=== PATIENT | male | born 1985 | race African-American/Black ===

== ENCOUNTER 2017-05-30 21:04 | Emergency (ER) ==
[2017-05-30 21:20] VITALS: BP 130/82; TEMP 98.4; BMI 30.5
[2017-05-30 21:36] LABS: BASOPHILS # (AUTO) 0.1 K/uL (0-0.2); BASOPHILS % (AUTO) 0.7 % (0.0-3.0); EOSINOPHILS # (AUTO) 0.2 K/ul (0.0-0.7); EOSINOPHILS % (AUTO) 1.6 % (0.0-7.0); HEMATOCRIT 45.8 % (42.0-52.0); HEMOGLOBIN 15.4 g/dl (14.0-18.0); IMMATURE GRANULOCYTE % (AUTO) 0.3 % (0.0-5.0); LYMPHOCYTES % (AUTO) 18.7 (10.0-50.0); MEAN CORPUSCULAR HEMOGLOBIN 26.9 pg (27.0-31.0); MEAN CORPUSCULAR HGB CONC 33.6 (31.8-35.4); MEAN CORPUSCULAR VOLUME 79.9 fl (80.0-94.0); MONOCYTES # (AUTO) 1.2 K/uL (0.4-2.0); MONOCYTES % (AUTO) 10.8 (0-10); NEUTROPHILS # (AUTO) 7.2 K/ul (2.0-6.9); NEUTROPHILS % (AUTO) 67.9; PLATELET COUNT 318 10^3/uL (140-440); RED BLOOD COUNT 5.73 10^6/ul (4.70-6.10); WHITE BLOOD COUNT 10.63 K/ul (4.2-10.2)
[2017-05-30 21:39] LABS: ADD URINE MICROSCOPIC NO; BILIRUBIN,URINE Negative (NEGATIVE); KETONES,URINE Trace (NEGATIVE); LEUKOCYTE ESTERASE ,URINE Negative (NEGATIVE); NITRITE,URINE Negative (NEGATIVE); PH,URINE 6.5 (5-9); PROTEIN,URINE Negative (NEGATIVE); URINE, BLOOD Negative (NEGATIVE)
--- NOTE | 2017-05-30 21:41 | CT ---
EXAM: CT scan of the head without contrast HISTORY: Headaches TECHNIQUE: Imaging of the head was performed without contrast. 5 mm thin axial images and coronal a nd sagittal images were provided for interpretation. FINDINGS: The almanza-white interface appears normal. The lateral ventricles and cortical sulci are no rmal. The basal cisterns are patent. There is no acute hemorrhage or mass effect. There are no ext raaxial collections. The paranasal sinuses and mastoid air cells are clear. The calvarium and extra cranial soft tissues are normal. IMPRESSION: No acute intracranial abnormalities are seen.
[2017-05-30 21:48] LABS: COCAIN SCREEN,URINE NEGATIVE (NEGATIVE)
[2017-05-30 22:15] LABS: ALBUMIN 4.4 g/dL (3.4-5.0); ALBUMIN/GLOBULIN RATIO 1.02; ANION GAP 15.9; BILIRUBIN,TOTAL 0.57 mg/dL (0.00-1.20); BUN/CREATININE RATIO 12.4; CALCIUM 10.4 mg/dL (8.2-10.2); CREATININE 1.37 mg/dL (0.60-1.10); POTASSIUM 3.9 mmol/L (3.5-5.1); TOTAL PROTEIN 8.7 g/dL (6.4-8.2)
--- NOTE | 2017-05-31 00:44 | ED.PDOC ---
General ED Provider: Dr. JOE CLEMENTE-ER Chief Complaint: Psychiatric Complaint Stated Complaint: im paranoid Time Seen by Physician: 21:10 Mode of Arrival: Walk-In Information Source: Patient Exam Limitations: No limitations Nursing and Triage Documentation Reviewed and Agree: Yes Psychological Complaint Exam - Psychiatric Complaint/Exam Patient Complains Of: Present: Other Onset/Duration: 2-3 weeks Symptoms Are: Still present Timing: Intermittent Episodes Lasting: Days Initial Severity: Mild Current Severity: Moderate Aggravating: Reports: Recent stress Associated Signs And Symptoms: Reports: Paranoid behavior, Sleep disturbance Related History: Denies: Suicidal thoughts, Suicidal plan, Suicidal gestures, Homicidal thoughts, Homicidal plan, Homicidal gestures, Prior attempts, Recent stressors, Drug ingestion Completed Suicide Risk Factors: Male Patient In Custody Of Police: No Social Withdrawal Present: Yes Social Isolation Present: No Prior Suicide Attempt: No Injury From Prior Suicide Attempt: No Related Surgical History: Reports: None Patient Uncooperative For Exam: No Mood: Present: Guarded, Paranoid, Anxious, Hearing voices Appearance: Present: Clean Memory: Intact Judgement: Normal Danger To Others: No Patient Medically Stable For: Psych evaluation, Referral, Transfer Differential Diagnoses: Bipolar Disorder, Acute Psychosis, Schizophrenia Review of Systems - Review Of Systems Constitutional: Reports: No symptoms Eyes: Reports: No symptoms Ears, Nose, Mouth, Throat: Reports: No symptoms Respiratory: Reports: No symptoms Cardiac: Reports: No symptoms GI: Reports: No symptoms : Reports: No symptoms Musculoskeletal: Reports: No symptoms Skin: Reports: No symptoms Neurological: Reports: No symptoms Endocrine: Reports: No symptoms Hematologic/Lymphatic: Reports: No symptoms All Other Systems: Reviewed and Negative Past Medical History - Past Medical History Previously Healthy: Yes Endocrine: Reports: Unknown Cardiovascular: Reports: Unknown Respiratory: Reports: Unknown Hematological: Reports: Unknown Gastrointestinal: Reports: Unknown Genitourinary: Reports: Unknown Neuro/Psych: Reports: Unknown Musculoskeletal: Reports: Unknown Cancer: Reports: Unknown - Surgical History General Surgical History: Reports: Unknown - Family History Family History: Reports: Unknown - Social History Smoking Status: Current every day smoker, Light tobacco smoker Hx Substance Use: No Alcohol Screening: None - Immunizations Tetanus Shot up to Date: Yes Physical Exam - Physical Exam Appearance: Well-appearing, No pain distress, Well-nourished Eyes: AILEEN, EOMI, Conjunctiva clear ENT: Ears normal, Nose normal, Oropharynx normal Neck: Supple Respiratory: Airway patent, Breath sounds clear, Breath sounds equal, Respirations nonlabored Cardiovascular: RRR, Pulses normal, No rub, No murmur GI/: Soft, Nontender, No masses, Bowel sounds normal, No Organomegaly Musculoskeletal: Normal strength, ROM intact, No edema, No calf tenderness Skin: Warm Neurological: Sensation intact, Motor intact, Reflexes intact, Cranial nerves intact, Alert, Oriented Psychiatric: Affect appropriate, Mood appropriate Interpretation - Radiology Interpretation Radiology Interpretation By: Radiologist Radiology Results: Negative Exam Interpreted: CT Scan Critical Care Note - Critical Care Note Total Time (mins): 0 Course - Course Hematology/Chemistry: 05/30/17 21:34 05/30/17 21:34 Orders, Labs, Meds: Lab Review 05/30/17 05/30/17 05/30/17 21:34 21:34 21:35 WBC 10.63 H RBC 5.73 Hgb 15.4 Hct 45.8 MCV 79.9 L MCH 26.9 L MCHC 33.6 RDW Coeff of Timmy 13.0 Plt Count 318 Immature Gran % (Auto) 0.3 Neut % (Auto) 67.9 Lymph % (Auto) 18.7 [place] % (Auto) 10.8 H Eos % (Auto) 1.6 Baso % (Auto) 0.7 Immature Gran # (Auto) 0.0 Neut # 7.2 H Lymph # 2.0 [place] # 1.2 Eos # 0.2 Baso # 0.1 Sodium 140 Potassium 3.9 Chloride 101 Carbon Dioxide 27 Anion Gap 15.9 BUN 17 Creatinine 1.37 H Estimated GFR (MDRD) 73.00 BUN/Creatinine Ratio 12.40 Glucose 75 Calcium 10.4 H Total Bilirubin 0.57 AST 22 ALT 10 L Alkaline Phosphatase 67 Total Protein 8.7 H Albumin 4.4 Globulin 4.3 Albumin/Globulin Ratio 1.02 TSH 0.849 Urine Color Urine Clarity Urine pH Ur Specific [place] Urine Protein Urine Glucose (UA) Urine Ketones Urine Blood Urine Nitrite Urine Bilirubin Urine Urobilinogen Ur Leukocyte Esterase Urine Opiates Screen Negative Ur Oxycodone Screen Negative Urine Methadone Screen Negative Ur Propoxyphene Screen Negative Ur Barbiturates Screen Negative U Tricyclic Antidepress Negative Ur Phencyclidine Scrn Negative Ur Amphetamine Screen Negative U Methamphetamines Scrn Negative U Benzodiazepines Scrn Negative Urine Cocaine Screen Negative U Cannabinoids Screen Positive Plasma/Serum Alcohol 05/30/17 05/31/17 21:35 01:35 WBC RBC Hgb Hct MCV MCH MCHC RDW Coeff of Timmy Plt Count Immature Gran % (Auto) Neut % (Auto) Lymph % (Auto) [place] % (Auto) Eos % (Auto) Baso % (Auto) Immature Gran # (Auto) Neut # Lymph # [place] # Eos # Baso # Sodium Potassium Chloride Carbon Dioxide Anion Gap BUN Creatinine Estimated GFR (MDRD) BUN/Creatinine Ratio Glucose Calcium Total Bilirubin AST ALT Alkaline Phosphatase Total Protein Albumin Globulin Albumin/Globulin Ratio TSH Urine Color Yellow Urine Clarity Clear Urine pH 6.5 Ur Specific [place] 1.020 Urine Protein Negative Urine Glucose (UA) Negative Urine Ketones Trace Urine Blood Negative Urine Nitrite Negative Urine Bilirubin Negative Urine Urobilinogen 1.0 Ur Leukocyte Esterase Negative Urine Opiates Screen Ur Oxycodone Screen Urine Methadone Screen Ur Propoxyphene Screen Ur Barbiturates Screen U Tricyclic Antidepress Ur Phencyclidine Scrn Ur Amphetamine Screen U Methamphetamines Scrn U Benzodiazepines Scrn Urine Cocaine Screen U Cannabinoids Screen Plasma/Serum Alcohol < 10.0 Orders Category Date Time Status BLOOD ALCOHOL Stat LAB 05/31/17 01:35 Completed CBC W/ AUTO DIFF Stat LAB 05/30/17 21:34 Completed COMPREHENSIVE METABOLIC PANEL Stat LAB 05/30/17 21:34 Completed THYROID STIMULATING HORMONE Stat LAB 05/30/17 21:34 Completed URINALYSIS C & S IF INDICATED Stat LAB 05/30/17 21:35 Completed URINE DRUG SCREEN (RAPID FOR ED) [DRUG SCREEN, URINE, LAB 05/30/17 21:35 Completed RAPID] Stat CT HEAD W/O CONTRAST Stat RADS 05/30/17 21:23 Completed Vital Signs: Temp Pulse Resp BP Pulse Ox 05/30/17 21:05 98.4 F 94 H 18 130/82 98 Departure - Departure Time of Disposition: 00:44 Disposition: HOME SELF-CARE Discharge Problem: Psychosis Instructions: Psychotic Disorder (ED) Condition: Good Pt referred to PMD for follow-up: Yes Additional Instructions: go to the mental health facility upon discharge as instructed Allergies/Adverse Reactions: Allergies Penicillins Adverse Reaction (Verified 05/30/17 21:54) Home Medications: Ambulatory Orders 1 [No Reported Medications] 05/30/17 Disposition Discussed With: Patient Discharge Problem: Psychosis Qualifiers: Psychosis type: unspecified psychosis type Qualified Code(s): F29 - Unspecified psychosis not due to a substance or known physiological condition
== END 2017-05-31 08:25 | disposition home or self-care (01) ==
LOC: ED 21:04
DX: F29 Unspecified psychosis not due to a substance or known physiological condition (principal); F17.210 Nicotine dependence, cigarettes, uncomplicated
CPT/HCPCS: 36415; 80053; 80306; 80307; 81001; 84443; 85025; 99283; 99284

== ENCOUNTER 2017-10-01 17:33 | Emergency (ER) ==
[2017-10-01 17:36] VITALS: BMI 27.3
--- NOTE | 2017-10-01 21:13 | ED.PDOC ---
General ED Provider: Dr. ESTELLA CHERRY Chief Complaint: Psychiatric Complaint Stated Complaint: patient is a 32 year old male with a psychiatirc history who is supposed to be on zyprexa but has not taken for few days. State it makes him feel funny. He states that he feels suicidal but does not have a plan. Time Seen by Physician: 18:00 Mode of Arrival: Walk-In Information Source: Patient Exam Limitations: No limitations Nursing and Triage Documentation Reviewed and Agree: Yes Reviewed sepsis parameters & appropriate labs ordered?: Yes System Inflammatory Response Syndrome: Not Applicable Sepsis Protocol: For patient's 13 years and over: Temp is 96.8 and below OR 101 and greater Pulse >90 BPM Resp >20/minute Acutely Altered Mental Status Are patient's symptoms suggestive of a new infection, such as: -Pneumonia -Skin, Soft Tissue -Endocarditis -UTI -Bone, Joint Infection -Implantable Device -Acute Abdominal Infection -Wound Infection -Meningitis -Blood Stream Catheter Infection -Unknown System Inflammatory Response Syndrome: Not Applicable Psychological Complaint Exam - Psychiatric Complaint/Exam Patient Complains Of: Present: Depression, Suicidal thoughts Onset/Duration: 1 day Symptoms Are: Still present Timing: Constant Initial Severity: Moderate Current Severity: Severe Character: Present: Depressed, Anxious Aggravating: Reports: Medication noncompliance Associated Signs And Symptoms: Reports: Paranoid behavior Related History: Reports: Suicidal thoughts Completed Suicide Risk Factors: None Patient In Custody Of Police: No Social Withdrawal Present: No Social Isolation Present: No Prior Suicide Attempt: No Injury From Prior Suicide Attempt: No Related Surgical History: Reports: None Patient Uncooperative For Exam: No Mood: Present: Depressed, Paranoid, Anxious Appearance: Present: Clean Thought Process: Present: Illogical Insight: Present: Poor, Limited Memory: Intact Judgement: Impaired Patient Medically Stable For: Psych evaluation Differential Diagnoses: Anxiety, Depression, Suicidal Ideation Review of Systems - Review Of Systems Constitutional: Reports: No symptoms Eyes: Reports: No symptoms Ears, Nose, Mouth, Throat: Reports: No symptoms Respiratory: Reports: No symptoms Cardiac: Reports: No symptoms GI: Reports: No symptoms : Reports: No symptoms Musculoskeletal: Reports: No symptoms Skin: Reports: No symptoms Neurological: Reports: Anxiety, Depressed Endocrine: Reports: No symptoms Hematologic/Lymphatic: Reports: No symptoms All Other Systems: Reviewed and Negative Past Medical History - Past Medical History Previously Healthy: Yes Endocrine: Reports: None Cardiovascular: Reports: None Respiratory: Reports: None Hematological: Reports: None Gastrointestinal: Reports: None Genitourinary: Reports: None Neuro/Psych: Reports: Anxiety, Depression Musculoskeletal: Reports: None Cancer: Reports: None - Surgical History General Surgical History: Reports: None - Family History Family History: Reports: None - Social History Smoking Status: Current every day smoker, Light tobacco smoker Hx Substance Use: No Alcohol Screening: None Physical Exam - Physical Exam Appearance: Ill-appearing Ill-appearing: Mild Eyes: AILEEN, EOMI, Conjunctiva clear ENT: Ears normal, Nose normal, Oropharynx normal Neck: Supple Respiratory: Airway patent, Breath sounds clear, Breath sounds equal, Respirations nonlabored Cardiovascular: RRR, Pulses normal, No rub, No murmur GI/: Soft, Nontender, No masses, Bowel sounds normal, No Organomegaly Musculoskeletal: Normal strength, ROM intact, No edema, No calf tenderness Skin: Warm, Dry, Normal color Neurological: Sensation intact, Motor intact, Reflexes intact, Cranial nerves intact, Alert, Oriented Psychiatric: Anxious, Depressed Interpretation - EKG Interpretation Time of EKG #1: 21:33 Rate: Normal Rhythm: Sinus Ectopy: None [place]: [place] Interpretation: normal sinus, Right ventricular Hypertophy Physician Notification - Case Discussed Physician Notified: Dr. Reddy Time of Notification: 03:18 (Acepted for transfer ) Critical Care Note - Critical Care Note Total Time (mins): 0 Course - Course Hematology/Chemistry: 10/01/17 18:20 18 18:20 Orders, Labs, Meds: Lab Review 10/01/17 10/01/17 10/01/17 18:20 18:20 21:00 WBC 12.23 H RBC 5.26 Hgb 14.0 Hct 42.3 MCV 80.4 MCH 26.6 L MCHC 33.1 RDW Coeff of Timmy 13.3 Plt Count 305 Immature Gran % (Auto) 0.3 Neut % (Auto) 58.9 Lymph % (Auto) 21.8 [place] % (Auto) 16.7 H Eos % (Auto) 1.7 Baso % (Auto) 0.6 Immature Gran # (Auto) 0.0 Neut # 7.2 H Lymph # 2.7 [place] # 2.0 Eos # 0.2 Baso # 0.1 Sodium 138 Potassium 3.8 Chloride 102 Carbon Dioxide 22 Anion Gap 17.8 BUN 18 Creatinine 1.33 H Estimated GFR (MDRD) 76.00 BUN/Creatinine Ratio 13.53 Glucose 81 Calcium 9.9 Total Bilirubin 0.8 AST 51 H ALT 19 Alkaline Phosphatase 72 Total Protein 8.6 H Albumin 4.3 Globulin 4.3 Albumin/Globulin Ratio 1.00 Urine Color Urine Clarity Urine pH Ur Specific [place] Urine Protein Urine Glucose (UA) Urine Ketones Urine Blood Urine Nitrite Urine Bilirubin Urine Urobilinogen Ur Leukocyte Esterase Urine Microscopic RBC Urine Microscopic WBC Ur Squamous Epith Cells Urine Bacteria Urine Mucus Salicylate Level mg/dL < 5.0 Urine Opiates Screen Negative Ur Oxycodone Screen Negative Urine Methadone Screen Negative Ur Propoxyphene Screen Negative Acetaminophen < 3 L Ur Barbiturates Screen Negative U Tricyclic Antidepress Negative Ur Phencyclidine Scrn Negative Ur Amphetamine Screen Positive U Methamphetamines Scrn Positive U Benzodiazepines Scrn Negative Urine Cocaine Screen Negative U Cannabinoids Screen Negative Plasma/Serum Alcohol < 10.0 10/01/17 21:00 WBC RBC Hgb Hct MCV MCH MCHC RDW Coeff of Timmy Plt Count Immature Gran % (Auto) Neut % (Auto) Lymph % (Auto) [place] % (Auto) Eos % (Auto) Baso % (Auto) Immature Gran # (Auto) Neut # Lymph # [place] # Eos # Baso # Sodium Potassium Chloride Carbon Dioxide Anion Gap BUN Creatinine Estimated GFR (MDRD) BUN/Creatinine Ratio Glucose Calcium Total Bilirubin AST ALT Alkaline Phosphatase Total Protein Albumin Globulin Albumin/Globulin Ratio Urine Color Yellow Urine Clarity Clear Urine pH 5.0 Ur Specific [place] 1.025 Urine Protein Negative Urine Glucose (UA) Negative Urine Ketones 2+ Urine Blood 1+ Urine Nitrite Negative Urine Bilirubin 1+ Urine Urobilinogen 1.0 Ur Leukocyte Esterase Trace Urine Microscopic RBC 2-5 Urine Microscopic WBC 20-30 Ur Squamous Epith Cells 2-5 Urine Bacteria 1+ Urine Mucus Trace Salicylate Level mg/dL Urine Opiates Screen Ur Oxycodone Screen Urine Methadone Screen Ur Propoxyphene Screen Acetaminophen Ur Barbiturates Screen U Tricyclic Antidepress Ur Phencyclidine Scrn Ur Amphetamine Screen U Methamphetamines Scrn U Benzodiazepines Scrn Urine Cocaine Screen U Cannabinoids Screen Plasma/Serum Alcohol Orders Category Date Time Status EKG-(ED ONLY) Stat CARDIO 10/01/17 18:04 Ordered EKG-(ED ONLY) Stat CARDIO 10/01/17 21:25 Completed ED [employer] APPLIED ONCE EMERGENCY 10/01/17 18:04 Active ACETAMINOPHEN Stat LAB 10/01/17 18:20 Completed BLOOD ALCOHOL Stat LAB 10/01/17 18:20 Completed CBC W/ AUTO DIFF Stat LAB 10/01/17 18:20 Completed COMPREHENSIVE METABOLIC PANEL Stat LAB 10/01/17 18:20 Completed DRUG SCREEN, URINE, RAPID Stat LAB 10/01/17 21:00 Completed SALICYLATE Stat LAB 10/01/17 18:20 Completed URINALYSIS C & S IF INDICATED Stat LAB 10/01/17 21:00 Completed URINE CULTURE Stat LAB 10/01/17 21:00 Received Lorazepam [Ativan] MEDS 10/01/17 22:38 Discontinued 1 mg .ROUTE .STK-MED ONE Lorazepam [Ativan] MEDS 10/01/17 22:36 Discontinued 1 mg PO ONCE STA Medications Discontinued Medications Generic Name Dose Route Start Last Admin Trade Name Freq PRN Reason Stop Dose Admin Lorazepam 1 mg 10/01/17 22:36 10/01/17 22:41 Ativan PO 10/01/17 22:37 1 mg ONCE STA Administration Vital Signs: Temp Pulse Resp BP Pulse Ox 10/01/17 17:33 99.0 F 100 H 16 122/81 97 Departure - Departure Time of Disposition: 23:28 Disposition: TSF SHORT-TRM HOSP Discharge Problem: Anxiety, Depression, Suicidal ideation Condition: Stable Pt referred to PMD for follow-up: Yes IPMP verified?: No Allergies/Adverse Reactions: Allergies Penicillins Adverse Reaction (Verified 10/01/17 17:36) Home Medications: Ambulatory Orders Olanzapine [Zyprexa] 5 mg PO BEDTIME 10/01/17 Disposition Discussed With: Patient Discharge Problem: Depression Qualifiers: Depression Type: major depressive disorder Major depression recurrence: recurrent Active/Remission status: currently active Major depression episode severity: severe Psychotic features: with psychotic features Qualified Code(s): F33.3 - Major depressive disorder, recurrent, severe with psychotic symptoms
[2017-10-01] MEDS ORDERED: ATIVAN PO STA (22:36)
[2017-10-01] MEDS ORDERED: ATIVAN ONE (22:38)
[2017-10-02 04:23] VITALS: BP 122/78; TEMP 97.7
== END 2017-10-02 04:49 | disposition short-term general hospital (02) ==
LOC: ED 17:33
DX: F33.3 Major depressive disorder, recurrent, severe with psychotic symptoms (principal); F41.9 Anxiety disorder, unspecified; R45.851 Suicidal ideations; F17.210 Nicotine dependence, cigarettes, uncomplicated
CPT/HCPCS: 36415; 80053; 80306; 80307; 81001; 85025; 87086; 93005; 93010; 99283